=== PATIENT | male | born 1945 | race Two or more races ===

== ENCOUNTER 2023-04-23 18:48 | Emergency (ER) | payer MEDICAID ==
[~2023-04-23] VITALS: Ht 172.7 cm; Wt 100.0 kg
[2023-04-23 18:57] VITALS: BP 180/98; O2SAT 95
[2023-04-23] MEDS ORDERED: ACETAMINOPHEN 325MG TABLET PO STA (19:57)
[2023-04-23 20:21] LABS: EOSINOPHILS % 2.5 % (0.0-5.0); HEMATOCRIT. 42.3 % (42.0-52.0); HEMOGLOBIN. 14.5 g/dL (14.0-18.0); LYMPHOCYTES % 20.8 % (20.0-50.0); MEAN CORPUSCULAR HEMOGLOBIN 30.1 pg (28.0-32.0); MEAN CORPUSCULAR HGB CONC 34.2 g/dL (31.0-37.0); MEAN CORPUSCULAR VOLUME 88.1 fL (80.0-94.0); MONOCYTES % 10.2 % (2.0-8.0); NEUTROPHILS % 65.5 % (40.0-76.0); RED CELL DISTRIBUTION WIDTH 14.7 % (11.6-14.6); WHITE BLOOD COUNT 6.5 x1000/uL (4.5-11.0)
[2023-04-23 20:24] LABS: DIFFERENTIAL COMMENT 1
[2023-04-23 20:28] LABS: CHLORIDE 102 mEq/L (98-107); INDEX HEMOLYSI 2 (1-3); INDEX ICTERIC 1 (1-4); INDEX LIPEMIC 2 (1-3); POTASSIUM 4.2 mEq/L (3.5-5.1); SODIUM 135 mEq/L (136-145)
[2023-04-23 20:37] LABS: ALBUMIN 3.5 g/dL (3.4-5.0); ASPARTATE AMINOTRANSFERASE 23 IU/L (15-37); BILIRUBIN TOTAL 0.5 mg/dL (0.1-1.0); CALCIUM 8.2 mg/dL (8.5-10.1); CARBON DIOXIDE 26 mEq/L (21-32); CREATININE 3.3 mg/dL (0.6-1.3); GLUCOSE 279 mg/dL (70-105); PROTEIN TOTAL 7.7 g/dL (6.0-8.3); UREA NITROGEN BLOOD 50 mg/dL (7-21)
[2023-04-23] MEDS ORDERED: BACITRACIN ZINC OINT UDPKT TOP NR (20:37)
[2023-04-23 20:51] LABS: MEAN PLATELET VOLUME 8.4 fl (7.4-10.4); PLATELET 127 x1000/uL (130-400)
[2023-04-23 20:58] LABS: ALANINE AMINOTRANSFERASE 27 IU/L (13-61)
[2023-04-23] MEDS ORDERED: BACITRACIN ZINC OINT UDPKT TOP ONE (21:00)
[2023-04-23] MEDS ORDERED: LIDOCAINE HCL/PF 1% 10 MG/ML 5ML VIAL INFIL ONE (21:00)
[2023-04-23] MEDS ORDERED: ACET-2708 PO (21:50)
[2023-04-23] MEDS ORDERED: CEPH500C2 MT (21:50)
[2023-04-23] MEDS ORDERED: SULF1TAB48 MT (21:50)
[2023-04-23] MEDS ORDERED: BO1 TP (21:50)
[2023-04-23] MEDS ORDERED: GLIP5TAB22 MT (21:50)
[2023-04-23 22:25] VITALS: PULSE 80; RESP 18; TEMP 98.2
== END 2023-04-23 22:29 | disposition home or self-care (01) ==
LOC: ER 18:48
DX: S91.201A Unspecified open wound of right great toe with damage to nail, initial encounter (principal); L03.031 Cellulitis of right toe; E11.65 Type 2 diabetes mellitus with hyperglycemia; X58.XXXA Exposure to other specified factors, initial encounter; E78.00 Pure hypercholesterolemia, unspecified; Z86.73 Personal history of transient ischemic attack (TIA), and cerebral infarction without residual deficits; Y93.89 Activity, other specified; Y92.89 Other specified places as the place of occurrence of the external cause; Y99.8 Other external cause status
CPT/HCPCS: 80053; 85025; 36415; 73630; 11730; 99284; J3490; Z7610 ×2